=== PATIENT | male | born 1950 | race Asian ===

== ENCOUNTER 2023-05-24 13:11 | Observation (INO) | payer OTHER ==
[2023-05-24 14:42] LABS: INR 1.32 (0.83-1.09); PROTHROMBIN TIME (PATIENT) 15.3 SEC (9.7-13.0)
[2023-05-24 14:45] LABS: ACTIVATED PTT 29.8 SECONDS (25.2-36.5)
[2023-05-24 14:54] LABS: ALBUMIN 4.6 g/dl (3.4-5.0); BILIRUBIN,TOTAL 0.8 mg/dl (0.2-1); CALCIUM 9.5 mg/dl (8.5-10.1); CREATININE 1.2 mg/dl (0.6-1.3); POTASSIUM 3.8 mmol/L (3.5-5.1); TOT PROT 7.9 g/dl (6.4-8.2)
[2023-05-24 14:56] LABS: HEMATOCRIT 45.1 % (35.4-49); HEMOGLOBIN 15.2 G/dL (11.7-16.9); MCH 31.8 pg (25.7-33.7); MCHC 33.6 g/dl (32.0-35.9); MEAN CELL VOLUME 94.8 fl (80-96); MEAN PLT VOLUME 10.4 fl (7.5-11.1); PLATELET COUNT 155.2 10^3/uL (134-434); RBC 4.76 10^6/uL (4.00-5.60); WHITE BLOOD COUNT 9.7 10^3/uL (4.0-10.8)
[2023-05-24 15:00] LABS: PLATELET ESTIMATE ADEQUATE
[2023-05-24 17:45] VITALS: BMI 23.2
[2023-05-24] MEDS: LACTATED RINGERS SOLUTION 1,000 ML IV SCH (18:58)
[2023-05-25 08:34] LABS: ACTIVATED PTT 32.5 SECONDS (25.2-36.5); INR 1.33 (0.83-1.09); PROTHROMBIN TIME (PATIENT) 15.4 SEC (9.7-13.0)
[2023-05-25 09:02] LABS: ALBUMIN 3.8 g/dl (3.4-5.0); BILIRUBIN,TOTAL 0.8 mg/dl (0.2-1); CREATININE 0.9 mg/dl (0.6-1.3); PHOSPHOROUS 3.1 (2.5-4.9); POTASSIUM 4.3 mmol/L (3.5-5.1); TOT PROT 6.7 g/dl (6.4-8.2)
[2023-05-25] MEDS: TAMSULOSIN HCL 0.4 MG CAP PO SCH (09:51)
[2023-05-25 11:01] LABS: BASO % 0.5 % (0-2.0); EOS % 1.3 % (0-4.5); HEMATOCRIT 40.6 % (35.4-49); LYMPH % 26.1 % (8-40); MCH 32.1 pg (25.7-33.7); MCHC 34.4 g/dl (32.0-35.9); MEAN CELL VOLUME 93.1 fl (80-96); MEAN PLT VOLUME 10.9 fl (7.5-11.1); MONO % 11.5 % (3.8-10.2); NEUT % 60.6 % (42.8-82.8); PLATELET COUNT 161 10^3/uL (134-434); RBC 4.36 M/mm3 (4.00-5.60); RDW 13.6 % (11.9-15.9); WHITE BLOOD COUNT 8.1 K/mm3 (4.0-10.0)
[2023-05-25 19:09] VITALS: BP 147/74; PULSE 73; RESP 17; TEMP 98.6
== END 2023-05-25 19:30 | disposition home or self-care (01) ==
LOC: FER 13:11 → INTOOBSV 16:07 → FM/S 16:07
PROVIDERS: ADMIT Internal Medicine
PROC: 3E0337Z Introduction of Electrolytic and Water Balance Substance into Peripheral Vein, Percutaneous Approach (ICD-10-PCS; principal; 2023-05-24)
DX: R55 Syncope and collapse (principal); R42 Dizziness and giddiness; H93.8X1 Other specified disorders of right ear; N40.0 Benign prostatic hyperplasia without lower urinary tract symptoms; X58.XXXA Exposure to other specified factors, initial encounter; Y93.B3 Activity, free weights; Y92.89 Other specified places as the place of occurrence of the external cause; R73.03 Prediabetes; I10 Essential (primary) hypertension
CPT/HCPCS: 0241U-QW; 36415; 70450-TC; 71045-TC-FY; 80053; 80061; 83036; 83735; 83880; 84100; 84443; 84484; 85025; 85027; 85379; 85610; 85730; 93005; 93306-TC; 96360; 97116-GP; 97161-GP; 99285-25; G0378